=== PATIENT | male | born 1940 | race Caucasian/White ===

== ENCOUNTER 2019-02-03 00:18 | Observation (INO) | payer MEDICARE, BC ==
[~2019-02-03] VITALS: Ht 172.7 cm; Wt 93.0 kg
[2019-02-03] VITALS (8 sets, daily range): BP systolic 132–160; BP diastolic 54–76; PULSE 57–64; TEMP 97.6–99.4
[~2019-02-03 00:18] MED LIST: ACETAMINOPHEN W1 TA6 PO; ALTACE 10MG TAB10 MG PO; ALTACE10 MG PO; ASPIRIN 32325 MG/TA1 PO; ASPIRIN 32325 MG/TAB PO; CARDI-OMEGA1000 MG PO; CIPRO 500MG TA500 MG PO; COREG 25MG25 MG/TAB PO; COREG12.5 MG PO; DUO-KAPS1 CAP PO; FISH OIL CONCEN1 SG2 PO; FLOMAX0.4 MG PO; GLUCOPHAGE500 MG/TAB PO; LIPITOR 40MG TA40 MG PO; LIPITOR80 MG PO; LOPURIN300 MG PO; METFORMIN HCL500 MG PO; NITROGLYCERIN PO; NITROSTAT0.4 MG SL; NITROSTAT0.4 MG/TAB SL; PERCOCET 325 MG1 TA2 PO; VICODIN 5/5001 UDTAB PO; VITAMINS; XALATAN 2.5 ML2.5 ML OP; XALATAN EYE DROPS OU; ZYLOPRIM 300MG300 MG PO; [UNRECOGNIZED DRUG - OTHER] PO
[2019-02-03 00:55] LABS: BASO # 0.1 (0.0-0.2); EOS # 0.3 (0.0-0.7); GRAN # 3.5 (1.4-6.5); GRAN % 54.8 % (42.2-75.2); HEMOGLOBIN 14.3 g/dl (13.5-18.0); LYMPH # 1.9 (1.2-3.4); LYMPH % 29.7 % (20.0-51.0); MEAN CELL VOLUME 94 fl (80.0-100.0); MEAN CORPUSCULAR HEMOGLOBIN 32 pg (27.0-31.0); MEAN CORPUSCULAR HGB CONC 34 g/dl (33.0-37.0); MEAN PLATELET VOLUME 9.8 fl (7.4-10.4); MONO # 0.6 (0.1-0.6); MONO % 10.2 % (1.7-9.3); PLATELET COUNT 194 K/mm3 (130-400); RED BLOOD COUNT 4.49 M/mm3 (4.20-5.60); REDCELL DISTRIBUTION WIDTH-CV 13.2 % (11.5-14.5)
[2019-02-03 01:07] LABS: INR 0.9 (0.8-3.0)
[2019-02-03 01:09] LABS: PARTIAL THROMBOPLASTIN TIME 28.5 SECONDS (26.0-37.0)
[2019-02-03 01:14] LABS: ALANINE AMINOTRANSFERASE 32 U/L (21-72); ALBUMIN 4.2 gm/dL (3.5-5.0); ALKALINE PHOSPHATASE 61 U/L (50-136); ANION GAP 9 mmol/L (7-16); AST,SGOT 33 U/L (15-37); BILIRUBIN,TOTAL 0.8 mg/dL (0.0-1.0); BLOOD UREA NITROGEN 27 mg/dL (9-20); CALCIUM 10.1 mg/dL (8.4-10.2); CARBON DIOXIDE 30 mmol/L (22-30); CHLORIDE 104 mmol/L (98-107); GLUCOSE 110 mg/dL (74-106); LIPASE 173 U/L (23-300); POTASSIUM 4.9 mmol/L (3.4-5.0); SODIUM 143 mmol/L (137-145); TOTAL PROTEIN 7.3 gm/dL (6.4-8.2)
[2019-02-03 01:24] LABS: TROPONIN-I < 0.012 ng/mL (0.000-0.035)
[2019-02-03] MEDS ORDERED: XALATAN EYE DROPS OD (03:25)
--- NOTE | 2019-02-03 08:00 | NUR ---
Patient in bed resting. Alert and oriented x 3. Shift assessment complete. Spouse at bedside. Patient NPO. Tele in place. Denies pain or further needs at this time. Patient is to have stress test this AM.
--- NOTE | 2019-02-03 11:48 | NUR ---
First visit from the dryer and washer mechanic. No needs right now.
--- NOTE | 2019-02-03 12:00 | NUR ---
Patient down for stress test.
[2019-02-03 15:46] LABS: CALCIUM 9.7 mg/dL (8.4-10.2); CREATININE, serum 1.11 (0.66-1.25); POTASSIUM 4.3 mmol/L (3.4-5.0)
--- NOTE | 2019-02-03 16:01 | NUR ---
CLINT met with the patient to discuss a discharge plan. The pt lives in [place] with his . The pt does not use DME and reports independence with ADLs. The pt's PCP is Dr. Diez and pt receives medications from [facility] with no difficulties. The pt does not have advanced directives in the EMR but reports he does have them completed and designate his . The pt plans to return home and pt's will provide transportation. There are no additional needs at this time.
--- NOTE | 2019-02-03 18:27 | NUR ---
Patient has done well throughout the day. Independent in room. Spouse at bedside. Dr. Licea in to see patient. Denies pain or further needs at this time. Will report off to police shift commander.
--- NOTE | 2019-02-04 00:12 | NUR ---
CALL FROM TELEMETRY MONITORING REPORTING THAT PATIENT HAD 1 MINUETE RUN OF AFIB RATE CONTROLLED AT 120. CURRENTLY IN NSR. BP 120/66 HR 57. DENIES CHEST PAIN OR SHORTNESS OF BREATHE. CALL TO DR. GARCIA. NO NEWORDERS RECEIVED. WILL CONTINUE TO MONITOR, OBTAINED EKG IF IN AFIB AGAIN.
[2019-02-04 04:35] VITALS: BP 134/74; PULSE 57; TEMP 97.6
[2019-02-04 06:40] LABS: CALCIUM 9.1 mg/dL (8.4-10.2); CREATININE, serum 1.06 (0.66-1.25); POTASSIUM 4.3 mmol/L (3.4-5.0)
[2019-02-04 07:33] VITALS: BP 146/72; PULSE 89; TEMP 98.1
--- NOTE | 2019-02-04 10:40 | NUR ---
Pt assessment complete and charted. Morning medications administered per AUG. Pt denies chest pain, SOB, dizziness, N/V. Per pyrometer temperature regulator nurse pt had a short moment of afib while pt was sleeping, VSS, hospitalist notified, pt was slightly diaphoretic. Per pt he "sleeps hot". Otherwise pt asymptomatic. No other concerns or other episodes of afib. LFA patent. No other concerns at this time.
--- NOTE | 2019-02-04 11:29 | NUR ---
This nurse contacted LORY Gamez with cardio to discuss patients EKG strip, brief moment of afib overnight prior to signing off for discharge. Vera stated they would take a look.
[2019-02-04 11:36] VITALS: BP 144/71; PULSE 64; TEMP 97.8
[2019-02-04] MEDS ORDERED: ELIQUIS 5MG PO (13:36)
[2019-02-04] MEDS ORDERED: ASPIRIN E.C. 8181 MG PO (13:38)
--- NOTE | 2019-02-04 14:35 | NUR ---
Pt discharge instructions discussed and reviewed at bedside with patient . All questions answered. RWR INT IV discontinued with catheter tip intact and no complications. Tele removed. Pt escorted out via wheelchair by Anna Marie. No other needs.
== END 2019-02-04 14:41 | disposition home or self-care (01) ==
LOC: COL.ER 00:18 → SURG 01:59
PROVIDERS: Emergency Medicine; Nurse Practitioner Family; ADMIT Family Medicine
DX: R07.89 Other chest pain (principal); I48.0 Paroxysmal atrial fibrillation; I12.9 Hypertensive chronic kidney disease with stage 1 through stage 4 chronic kidney disease, or unspecified chronic kidney disease; E11.22 Type 2 diabetes mellitus with diabetic chronic kidney disease; E78.5 Hyperlipidemia, unspecified; M10.9 Gout, unspecified; E11.39 Type 2 diabetes mellitus with other diabetic ophthalmic complication; H42 Glaucoma in diseases classified elsewhere; I25.10 Atherosclerotic heart disease of native coronary artery without angina pectoris; I25.2 Old myocardial infarction; I07.1 Rheumatic tricuspid insufficiency; Z86.73 Personal history of transient ischemic attack (TIA), and cerebral infarction without residual deficits; Z79.84 Long term (current) use of oral hypoglycemic drugs; Z79.82 Long term (current) use of aspirin; Z87.891 Personal history of nicotine dependence; Z82.49 Family history of ischemic heart disease and other diseases of the circulatory system; Z83.3 Family history of diabetes mellitus
CPT/HCPCS: A9500; G0378; J7030

== ENCOUNTER 2020-12-04 00:04 | Inpatient (IN) | payer MEDICARE, BC ==
[2020-12-04] VITALS (722 sets, daily range): BP systolic 118–160; BP diastolic 59–96; PULSE 33–150; TEMP 97.1–98.6; O2SAT 60–100
[~2020-12-04] VITALS: Ht 172.7 cm; Wt 90.9 kg
[~2020-12-04 00:04] MED LIST changes: +ASPIRIN E.C. 8181 MG PO; +ELIQUIS 5MG PO; +XALATAN EYE DROPS OD
[2020-12-04 00:44] LABS: HEMATOCRIT 44.3 % (42.0-52.0); HEMOGLOBIN 14.9 g/dl (13.5-18.0); MEAN CELL VOLUME 95 fl (80.0-100.0); MEAN CORPUSCULAR HEMOGLOBIN 32 pg (27.0-31.0); MEAN CORPUSCULAR HGB CONC 34 g/dl (33.0-37.0); MEAN PLATELET VOLUME 10.2 fl (7.4-10.4); PLATELET COUNT 292 K/mm3 (130-400); RED BLOOD COUNT 4.68 M/mm3 (4.20-5.60); REDCELL DISTRIBUTION WIDTH-CV 13.5 % (11.5-14.5)
[2020-12-04 00:51] LABS: ALBUMIN 4.5 gm/dL (3.5-5.0); BILIRUBIN,TOTAL 0.7 mg/dL (0.0-1.0); CALCIUM 10.4 mg/dL (8.4-10.2); CREATININE, serum 2.04 (0.66-1.25)
[2020-12-04 01:06] LABS: LYMPHOCYTE 19 % (20.0-51.0); NEUTROPHILS 71 % (42.0-75.2); NUCLEATED RED BLOOD CELL 1 (0-6); PLATELET ESTIMATE NORMAL (NORMAL)
[2020-12-04 01:14] LABS: TROPONIN-I 0.215 ng/mL (0.000-0.035)
[2020-12-04 02:10] LABS: MAGNESIUM 1.8 mg/dL (1.6-2.3)
[2020-12-04] MEDS ORDERED: CORDARONE200 MG/TAB PO (03:57)
[2020-12-04] MEDS ORDERED: NITROSTAT0.4 MG/TAB SL (03:57)
[2020-12-04] MEDS ORDERED: EPA FISH OIL1 SGL PO (03:57)
[2020-12-04] MEDS ORDERED: ALDACTONE 25MG25 M1 PO (03:58)
[2020-12-04] MEDS ORDERED: VITAMIN D31000 I1 PO (03:58)
--- NOTE | 2020-12-04 07:23 | NUR ---
RECEIVED REPORT FROM MAC VELASQUEZ. PATIENT IS COMPLAINING OF CHEST PAIN. GETTING PAIN MEDS ORDERED. BREATHING IS DIFFICULT WITH THE PAIN. HR IS STILL HIGH AND WILL BE SEEING WHAT DOCTORS WANT TO DO. THE REST OF PATIENT'S VITALS ARE STABLE AND PATIENT IS IN BED. AMIODARONE GTT IS RUNNING. [address] AND PATENT. REMAINS A FEBRILE, BUT DIAPHORETIC AND COOL.
--- NOTE | 2020-12-04 09:05 | NUR ---
DR. GARCIA AT BEDSIDE. AGREEABLE TO CARDIOVERSION WITH DR. WOODARD. DR. WOODARD AWARE AND ON HIS WAY IN.
--- NOTE | 2020-12-04 09:38 | NUR ---
DR. WOODARD AND ANESTHESIA AT BEDSIDE. GETTING READY FOR CARDIOVERSION.
--- NOTE | 2020-12-04 09:53 | NUR ---
CARDIOVERSION COMPLETED AND SUCCESSFUL. PATIENT VERBALLY AGREED TO PROCEDURE. EQUIPMENT WAS GATHERED, ANESTHESIA AND CARDIOLOGY WAS CALLED. PATIENT PLACED ON MONITOR WITH SHOCK PADS. MONITOR TURNED ON. ATTEMPTED TO GIVE ADENOSINE 18MG AT 0940, UNSUCCESSFUL. CARRIED ON TO CARDIOVERSION. FLUIDS WERE HUNG, SEDATION 70MCG PUSHED VIA ANESTHESIA AT 0946. MONITOR WAS PLACE ON DEFIB MODE, CHARGED TO 200 AND SHOCKED ONCE AT 0949. HR WAS STILL LOW FOR 2 MINUTES. PUSHED ATROPINE 0.5MG AT 0951. PATIENT'S HR SUSTAINED IN 50s POST. NORMAL SINUS RHYTHM ON THE MONITOR.
--- NOTE | 2020-12-04 13:29 | NUR ---
SW met with patient to complete intake. Patient was resting and was okay with assisting with intake. Patient's spouse Kera [phone] states patient lives with her in [facility]. Spouse states that patient does not utilize DME, is independent with ADLs, and does not utilize HH services. Spouse states that patient's PCP is Dr. Diez, pharmacy is [facility] and that patient is able to afford his medications. Spouse provides that she is patient's DPOA-HC. Spouse also states that she is unsure of what the plan is for DC due to patient's needed extensive care at this time. SW informed spouse that the case management team will assist in resources needed up on DC. Spouse had no further questions or concerns at this time. Plan: Home if able to up on recommendation
[2020-12-04 13:52] LABS: ARTERIAL BLD GAS TCO2 CT 17.6; ARTERIAL BLOOD GAS BASE EXCESS -6.2 (-2-2); ARTERIAL BLOOD GAS HCO3 16.7 meq/L (22-26); ARTERIAL BLOOD GAS PO2 88.7 mmHg (80-100); ARTERIAL BLOOD GAS pH 7.41 (7.35-7.45)
[2020-12-04 14:52] LABS: BASO % 0.2 % (0.0-2.0); GRAN # 19.4 (1.4-6.5); GRAN % 88.8 % (42.2-75.2); HEMATOCRIT 42.1 % (42.0-52.0); HEMOGLOBIN 14.2 g/dl (13.5-18.0); LYMPH % 4.4 % (20.0-51.0); MEAN CELL VOLUME 96 fl (80.0-100.0); MEAN CORPUSCULAR HEMOGLOBIN 33 pg (27.0-31.0); MEAN CORPUSCULAR HGB CONC 34 g/dl (33.0-37.0); MEAN PLATELET VOLUME 10.8 fl (7.4-10.4); MONO # 1.3 (0.1-0.6); MONO % 6.1 % (1.7-9.3); PLATELET COUNT 261 K/mm3 (130-400); RED BLOOD COUNT 4.37 M/mm3 (4.20-5.60); REDCELL DISTRIBUTION WIDTH-CV 13.8 % (11.5-14.5)
[2020-12-04 16:27] LABS: BILIRUBIN,TOTAL 0.9 mg/dL (0.0-1.0); CREATININE, serum 2.03 (0.66-1.25); TOTAL PROTEIN 7.3 gm/dL (6.4-8.2)
[2020-12-04 16:45] LABS: POTASSIUM 6.1 mmol/L (3.4-5.0)
--- NOTE | 2020-12-04 20:00 | NUR ---
Assessment complete. Pt able to answer most questions correctly but has some intermittent confusion stating he's in [place] and that his is in the room next door. Denies having any pain at this time. Pt is resting quietly in the bed at this time and he denies further needs. Call light within reach.
[2020-12-05] VITALS (831 sets, daily range): BP systolic 133–175; BP diastolic 64–115; PULSE 54–71; TEMP 97.8–98.7; O2SAT 76–100
[2020-12-05 05:30] LABS: BASO % 0.1 % (0.0-2.0); EOS % 0.1 % (0-4.0); GRAN # 11.4 (1.4-6.5); HEMATOCRIT 39.5 % (42.0-52.0); HEMOGLOBIN 13.4 g/dl (13.5-18.0); LYMPH % 7.3 % (20.0-51.0); MEAN CELL VOLUME 95 fl (80.0-100.0); MEAN CORPUSCULAR HEMOGLOBIN 32 pg (27.0-31.0); MEAN CORPUSCULAR HGB CONC 34 g/dl (33.0-37.0); MEAN PLATELET VOLUME 10.4 fl (7.4-10.4); MONO # 0.9 (0.1-0.6); MONO % 6.9 % (1.7-9.3); PLATELET COUNT 204 K/mm3 (130-400); RED BLOOD COUNT 4.17 M/mm3 (4.20-5.60); REDCELL DISTRIBUTION WIDTH-CV 13.8 % (11.5-14.5)
[2020-12-05 05:44] LABS: ALBUMIN 3.7 gm/dL (3.5-5.0); CALCIUM 9.6 mg/dL (8.4-10.2); CREATININE, serum 1.78 (0.66-1.25); POTASSIUM 4.9 mmol/L (3.4-5.0)
--- NOTE | 2020-12-05 07:30 | NUR ---
Bedside shift report given to MAC Abraham.
--- NOTE | 2020-12-05 09:50 | NUR ---
SW attended clinical rounds. The patient's and another family member were at bedside. Awaiting cardiology's recs. The patient may have a heart cath in the next few days. PT/OT have been ordered. SW to continue to follow. *Discharge plan: home with , awaiting therapy's recs*
--- NOTE | 2020-12-05 09:56 | NUR ---
Initial visit attempt; Patient talking with nurse, Wheat Washer spoke with patient's and left her card so they will be aware of the availability of spiritual care.
--- NOTE | 2020-12-05 10:12 | NUR ---
0730: Pt tolerated turn from prone to supine without difficulty or complications 0751: Propofol and Fentanyl stopped per MD Devon who is on unit 0830: Precedex initiated at 0.5mcg/kg/hr d/t RASS: +3 and tachycardia HR: [id number] 9213: Pt maintains RASS: +3, pt moving all extremities, attempting to reach head down towards hands making attempts to grasp ETT, however pt unable to follow commands or maintain eye contact or track with eyes. BP: 192/62, HR:157, pt coughing and interrupting ventilations causing constant high priority alarms with desaturation of SpO2 d/t constant coughing 0940: per MD Devon pt to be resedated for pt safety
--- NOTE | 2020-12-05 20:00 | NUR ---
PATIENT IS ALERT AND ORIENTED AT THIS TIME, ADMITS TO UP COMING EVENTS (HEART CATH, ICD PLACEMENT), DENIES PAIN OR DISCOMFORT/ FEELS GOOD ABOUT WALKS WITH PT.
[2020-12-06] VITALS (1032 sets, daily range): BP systolic 109–167; BP diastolic 59–94; PULSE 58–153; TEMP 97.8–99; O2SAT 85–100
[2020-12-06 05:20] LABS: BASO % 0.3 % (0.0-2.0); EOS % 0.4 % (0-4.0); GRAN # 7.4 (1.4-6.5); GRAN % 79.4 % (42.2-75.2); HEMATOCRIT 40.7 % (42.0-52.0); HEMOGLOBIN 13.5 g/dl (13.5-18.0); LYMPH % 11.2 % (20.0-51.0); MEAN CELL VOLUME 95 fl (80.0-100.0); MEAN CORPUSCULAR HEMOGLOBIN 32 pg (27.0-31.0); MEAN CORPUSCULAR HGB CONC 33 g/dl (33.0-37.0); MEAN PLATELET VOLUME 10.2 fl (7.4-10.4); MONO # 0.8 (0.1-0.6); MONO % 8.3 % (1.7-9.3); PLATELET COUNT 205 K/mm3 (130-400); RED BLOOD COUNT 4.27 M/mm3 (4.20-5.60); REDCELL DISTRIBUTION WIDTH-CV 13.7 % (11.5-14.5)
[2020-12-06 05:30] LABS: CALCIUM 9.6 mg/dL (8.4-10.2); CREATININE, serum 1.69 (0.66-1.25); INR 1.3 (0.8-3.0); MAGNESIUM 1.8 mg/dL (1.6-2.3); POTASSIUM 4.7 mmol/L (3.4-5.0); PROTHROMBIN TIME 13.9 SECONDS (9.7-12.8)
[2020-12-06 05:33] LABS: PARTIAL THROMBOPLASTIN TIME 28.2 SECONDS (26.0-37.0)
--- NOTE | 2020-12-06 06:40 | NUR ---
this am vacation sedation,went ok, patient does not understand directions, cannot follow simple commands, wrestles with restraints, unable to relax, pulses elevated to 130, sedation/pain/anesthia meds renewed...
--- NOTE | 2020-12-06 07:10 | NUR ---
RECEIVED REPORT FROM MAC VELASQUEZ. PT RESTING IN BED ON RA. VSS. CALL LIGHT WITHIN REACH.
--- NOTE | 2020-12-06 07:46 | NUR ---
PER MT, PT IN VTACH 150s. DR MORTON NOTIFIED AND STATES TO GIVE VERSED AND SHOCK THE PT WITH MAX JOULES ON SYNCH. PT SHOCKED X1 WITH 200J AT 0758. SR 87 POST SHOCK. VSS.
--- NOTE | 2020-12-06 08:03 | NUR ---
JONAH RN NOTED PT BACK INTO VTACH. 200J X1 SHOCK GIVEN. BACK IN SR 80s. DR DE LEON CALLS AND STATES TO GIVE AMIO BOLUS THEN START GTT, SEE MAR.
--- NOTE | 2020-12-06 08:23 | NUR ---
DR DE LEON NOTIFED PT BACK INTO VTACH 140s AFTER AMIO BOLUS GIVEN. PHYSICIAN STATES WILL BE AT BEDSIDE SOON. DR DE LEON AT BEDSIDE AT 0829, PROPOFOL GIVEN BY PROVIDER AND ANOTHER 200J SHOCK PROVIDED, SR 70s. AEROBICS TEACHER TEAM AT BEDSIDE TO PREPARE PT FOR PROCEDURE. AND DAUGHTER AT BEDSIDE AWARE OF WHAT IS GOING ON. VSS. PT TO AEROBICS TEACHER AT 0848.
--- NOTE | 2020-12-06 12:30 | NUR ---
RECEIVED REPORT FROM MAC JOHNSON FROM RECORDER HELPER GRAVITY PROSPECTING. PT ARRIVES BACK TO ICI 6 WITH LEFT ARM IN SLING. DRESSING C/D/I TO LEFT SUBCLAVIAN. RT RADIAL TR BAND NOTED, NOT DRAINAGE NOTED. VSS. CALL LIGHT WITHIN REACH. DAUGHTER AND TO BEDSIDE.
--- NOTE | 2020-12-06 12:56 | NUR ---
DR ALDRICH AT BEDSIDE FOR ASSESSMENT. UPDATED PROVIDER ON INCIDENT THIS AM AND NEW PACEMAKER/DEFIB PLACED TODAY.
[2020-12-07] VITALS (822 sets, daily range): BP systolic 123–167; BP diastolic 71–104; PULSE 64–96; TEMP 97.8–98.7; O2SAT 89–100
--- NOTE | 2020-12-07 02:24 | NUR ---
0051, PATIENT NOTED TO BE IN V TACH PER MONITOR, PATIENT WITH NO COMPLAINTS OF SOB OR CP. LOUISE JOHNSON NOTIFIED AND THEN PRESENT AT BEDSIDE, ICD PACEMAKER NOTED TO CONVERT PATIENT BACK INTO PACED RHYTHM 0130 PATIENT ENDORSED PAIN TO LEFT SHOULDER ADMINISTERED PRN MORPHINE PER ORDERS 0215 PATIENT HAS BEEN IN AND OUT OF V TACH AN ADDITIONAL 5 TIMES, PACER ADJUSTMENTS MADE PER DR. MORTON WITH FINAL PARAMETERS OF 85-120 PACED AND ICD AT 130 0230 PATIENT CURRENTLY IN PACED RHYTHM AT 84, RESTING QUIETLY IN BED WILL CONTINUE TO MONITOR
[2020-12-07 05:04] LABS: HEMATOCRIT 43.5 % (42.0-52.0); HEMOGLOBIN 14.5 g/dl (13.5-18.0); MEAN CELL VOLUME 95 fl (80.0-100.0); MEAN CORPUSCULAR HEMOGLOBIN 32 pg (27.0-31.0); MEAN CORPUSCULAR HGB CONC 33 g/dl (33.0-37.0); MEAN PLATELET VOLUME 10.9 fl (7.4-10.4); PLATELET COUNT 223 K/mm3 (130-400); RED BLOOD COUNT 4.56 M/mm3 (4.20-5.60); REDCELL DISTRIBUTION WIDTH-CV 13.5 % (11.5-14.5)
[2020-12-07 05:17] LABS: CALCIUM 9.8 mg/dL (8.4-10.2); CREATININE, serum 1.5 (0.66-1.25); POTASSIUM 4.4 mmol/L (3.4-5.0)
[2020-12-07 05:23] LABS: INR 1.1 (0.8-3.0); PROTHROMBIN TIME 12.4 SECONDS (9.7-12.8)
[2020-12-07 05:25] LABS: PARTIAL THROMBOPLASTIN TIME 25.8 SECONDS (26.0-37.0)
--- NOTE | 2020-12-07 08:21 | NUR ---
Pt to CathLab, accompanied by spouse and daughter
--- NOTE | 2020-12-07 11:00 | NUR ---
CLINT met with the patient, his (Kera), and daughter to review d/c plan and to discuss therapy's recommendation of outpatient PT vs home health. The patient plans to return home with his upon discharge. Him and his report that they would prefer outpatient PT. CLINT informed them of the different therapy centers. The patient states that he would like to try outpatient PT at the new [facility] in [facility]. CLINT contacted Viri at [facility] and obtained their phone number. Viri reports that the new [facility] is up and running. CLINT attempted to contact [facility] at [facility]. CLINT left them a voicemail. The patient reports an appointment on Saturday/Sat at 1000 or /Sat at 0800 would work. [facility] in [facility], ph#[phone] fax#[phone] *Discharge plan: home with and outpatient PT*
--- NOTE | 2020-12-07 11:22 | NUR ---
Kevin, at [facility] in [facility], returned CLINT's phone call. CLINT scheduled the patient an outpatient PT appointment on Saturday, 12/12, at 1000. CLINT notified the patient's RN of the appointment. CLINT will need to fax the patient's d/c orders to [facility], fax#[phone].
[2020-12-08] VITALS (783 sets, daily range): BP systolic 115–144; BP diastolic 76–84; PULSE 69–70; TEMP 97–99; O2SAT 80–100
--- NOTE | 2020-12-08 06:11 | NUR ---
PATIENT WAS PLESANT AND ORIENTED THROUGHOUT NIGHT. CATH AND PACER SITE REMAINED FREE OF COMPLICATIONS, DRY AND INTACT. PT COMPLAINED OF MINIMAL DISCOMFORT FROM LAYING AROUND THIS MORNING BUT OTHER THAN THAT, PT HAS BEEN COMFORTABLE AND SLEPT MOST OF NIGHT. STARTED PLAVIX AND ELIQUIS. CALLED [facility] AND CARDIOLOGY DUE TO 5 BEATS OF VTACH AT 0200 AND 3 RUNS OF ABOUT 13 SECONDS AFTER 0000. CARDIOLOGY RECOMENDS GIVING AMIO BOLUS IF 2 MORE RUNS OCCUR THIS MORNIGN OR IF A RUN LASTS LONGER THAN 30 SECONDS.
[2020-12-08 07:00] LABS: BASO % 0.3 % (0.0-2.0); EOS # 0.2 (0.0-0.7); EOS % 1.6 % (0-4.0); GRAN # 9.3 (1.4-6.5); GRAN % 81.3 % (42.2-75.2); HEMATOCRIT 37.1 % (42.0-52.0); LYMPH # 0.8 (1.2-3.4); LYMPH % 7.1 % (20.0-51.0); MEAN CELL VOLUME 92 fl (80.0-100.0); MEAN CORPUSCULAR HEMOGLOBIN 32 pg (27.0-31.0); MEAN CORPUSCULAR HGB CONC 35 g/dl (33.0-37.0); MEAN PLATELET VOLUME 10.8 fl (7.4-10.4); MONO % 9.1 % (1.7-9.3); PLATELET COUNT 193 K/mm3 (130-400); RED BLOOD COUNT 4.02 M/mm3 (4.20-5.60); REDCELL DISTRIBUTION WIDTH-CV 13.4 % (11.5-14.5)
[2020-12-08 07:09] LABS: CALCIUM 8.9 mg/dL (8.4-10.2); CREATININE, serum 2.14 (0.66-1.25); POTASSIUM 4.2 mmol/L (3.4-5.0)
--- NOTE | 2020-12-08 07:39 | NUR ---
PT HAD 3 MORE RUNS OF VTACH AFTER CALL WITH DR BOLAND. AMIO BOLUS ORDERED AND GIVEN. PT REMAINS ASYMPTOMATIC WITH VTACH RUNS.
--- NOTE | 2020-12-08 10:00 | NUR ---
Since 0700 pt has had 4 episodes of VTach where ICD/PPM was able to pace him out of the arrhythmia to an AV Paced rhythm. MD Cici notified - will contact EP Mosaic Tiler at [facility] for possible transfer - pt and family in agreement with transfer plan
--- NOTE | 2020-12-08 11:48 | NUR ---
[facility] No additional needs at this time.
--- NOTE | 2020-12-08 13:28 | NUR ---
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 Patient was amused and very gracious. offered God's blessings to Dr. Jonhson.
--- NOTE | 2020-12-08 21:00 | NUR ---
Assessment complete and charted. Patient IIV site in right AC swollen, painful to touch, with redness and warmth. Amio infusion stopped and moved to another IV site. IV right AC removed and wrapped with warm blanket at this time. Will closely monitor site.
[2020-12-09] VITALS (68 sets, daily range): BP systolic 134; BP diastolic 73; PULSE 69; TEMP 97.7; O2SAT 94–98
--- NOTE | 2020-12-09 01:19 | NUR ---
Patient transferred to [facility] via [facility]. Report called to MAC Porter
[2021-05-22] VITALS (8 sets, daily range): O2SAT 86–100
== END 2020-12-09 01:25 | disposition short-term general hospital (02) | DRG 222 ==
LOC: COL.ER 00:04 → ICU 01:47
PROVIDERS: Emergency Medicine; Internal Medicine; Internal Medicine Cardiovascular Disease; Internal Medicine Pulmonary Disease; Physician Assistant; Student in an Organized Health Care Education/Training Program; ADMIT Hospitalist
PROC: 0JH609Z Insertion of Cardiac Resynchronization Defibrillator Pulse Generator into Chest Subcutaneous Tissue and Fascia, Open Approach (ICD-10-PCS; principal; 2020-12-04)
PROC: 02HK3KZ Insertion of Defibrillator Lead into Right Ventricle, Percutaneous Approach (ICD-10-PCS; 2020-12-04)
PROC: 4A023N7 Measurement of Cardiac Sampling and Pressure, Left Heart, Percutaneous Approach (ICD-10-PCS; 2020-12-04)
PROC: 02H63KZ Insertion of Defibrillator Lead into Right Atrium, Percutaneous Approach (ICD-10-PCS; 2020-12-04)
PROC: 027135Z Dilation of Coronary Artery, Two Arteries with Two Drug-eluting Intraluminal Devices, Percutaneous Approach (ICD-10-PCS; 2020-12-04)
PROC: 5A2204Z Restoration of Cardiac Rhythm, Single (ICD-10-PCS; 2020-12-04)
PROC: B2111ZZ Fluoroscopy of Multiple Coronary Arteries using Low Osmolar Contrast (ICD-10-PCS; 2020-12-04)
PROC: 02HL3KZ Insertion of Defibrillator Lead into Left Ventricle, Percutaneous Approach (ICD-10-PCS; 2020-12-04)
DX: I13.0 Hypertensive heart and chronic kidney disease with heart failure and stage 1 through stage 4 chronic kidney disease, or unspecified chronic kidney disease (principal); I50.23 Acute on chronic systolic (congestive) heart failure; H40.9 Unspecified glaucoma; E87.5 Hyperkalemia; M10.9 Gout, unspecified; E78.5 Hyperlipidemia, unspecified; I25.10 Atherosclerotic heart disease of native coronary artery without angina pectoris; I95.9 Hypotension, unspecified; I48.0 Paroxysmal atrial fibrillation; I25.5 Ischemic cardiomyopathy; E11.22 Type 2 diabetes mellitus with diabetic chronic kidney disease; N18.9 Chronic kidney disease, unspecified; Z86.73 Personal history of transient ischemic attack (TIA), and cerebral infarction without residual deficits; Z79.84 Long term (current) use of oral hypoglycemic drugs; Z79.82 Long term (current) use of aspirin
CPT/HCPCS: 99231-AI; 99233-AI; 99239; C1725; C1769; C1777; C1874; C1882; C1887; C1894; C1898; C1900; C9600; C9601; J0153; J0282; J0360; J0461; J0583; J0610; J0690; J1644; J1650; J1815; J1940; J2250; J2270; J2704; J3010; J3475; J7030; J7060; Q9967

== ENCOUNTER 2020-12-17 11:14 | Emergency (ER) | payer MEDICARE, BC ==
[~2020-12-17] VITALS: Ht 172.7 cm; Wt 87.7 kg
[~2020-12-17 11:14] MED LIST changes: +ALDACTONE 25MG25 M1 PO; +CORDARONE200 MG/TAB PO; +EPA FISH OIL1 SGL PO; +VITAMIN D31000 I1 PO
[2020-12-17 11:20] VITALS: TEMP 97.8
[2020-12-17 11:53] LABS: HEMOGLOBIN 10.9 g/dl (13.5-18.0); MEAN CELL VOLUME 96 fl (80.0-100.0); MEAN CORPUSCULAR HEMOGLOBIN 32 pg (27.0-31.0); MEAN CORPUSCULAR HGB CONC 33 g/dl (33.0-37.0); MEAN PLATELET VOLUME 9.6 fl (7.4-10.4); PLATELET COUNT 357 K/mm3 (130-400); RED BLOOD COUNT 3.43 M/mm3 (4.20-5.60); REDCELL DISTRIBUTION WIDTH-CV 13.2 % (11.5-14.5)
[2020-12-17 12:02] LABS: ALBUMIN 3.8 gm/dL (3.5-5.0); BILIRUBIN,TOTAL 0.7 mg/dL (0.0-1.0); CREATININE, serum 3.53 (0.66-1.25); MAGNESIUM 2.2 mg/dL (1.6-2.3); POTASSIUM 4.7 mmol/L (3.4-5.0); TOTAL PROTEIN 7.4 gm/dL (6.4-8.2)
[2020-12-17 12:27] LABS: BAND 1 % (0-10); EOSINOPHIL 1 % (0-4); LYMPHOCYTE 8 % (20.0-51.0); METAMYELOCYTE 1 % (0-0); NEUTROPHILS 88 % (42.0-75.2); PLATELET ESTIMATE NORMAL (NORMAL)
[2020-12-17 12:30] LABS: MICROCYTOSIS 1+
[2020-12-17 12:33] VITALS: BP 138/81; PULSE 80
[2020-12-17 12:57] LABS: TROPONIN-I 0.033 ng/mL (0.000-0.035)
== END 2020-12-17 12:33 | disposition short-term general hospital (02) ==
LOC: COL.ER 11:14
PROVIDERS: Emergency Medicine
DX: Z45.02 Encounter for adjustment and management of automatic implantable cardiac defibrillator (principal); I25.10 Atherosclerotic heart disease of native coronary artery without angina pectoris; I48.0 Paroxysmal atrial fibrillation; I10 Essential (primary) hypertension; E11.9 Type 2 diabetes mellitus without complications; E78.5 Hyperlipidemia, unspecified; M10.9 Gout, unspecified; I25.2 Old myocardial infarction; Z86.73 Personal history of transient ischemic attack (TIA), and cerebral infarction without residual deficits; Z87.891 Personal history of nicotine dependence; Z79.01 Long term (current) use of anticoagulants; Z79.82 Long term (current) use of aspirin; Z79.899 Other long term (current) drug therapy; Z79.84 Long term (current) use of oral hypoglycemic drugs
CPT/HCPCS: J0282; J7060

== ENCOUNTER 2021-04-13 11:00 | Outpatient (RCR) | payer MEDICARE, BC | END 2021-05-17 | disposition home or self-care (01) | LOC: PT.GENESIS | DX: M70.62 Trochanteric bursitis, left hip (principal); M70.61 Trochanteric bursitis, right hip ==

== ENCOUNTER 2021-04-26 13:35 | Outpatient (RCR) | payer MEDICARE, BC | END 2021-04-26 15:00 | disposition home or self-care (01) | LOC: COL.CR 13:35 | DX: Z48.812 Encounter for surgical aftercare following surgery on the circulatory system (principal); Z95.5 Presence of coronary angioplasty implant and graft; I20.9 Angina pectoris, unspecified ==

== ENCOUNTER 2021-05-22 16:47 | Inpatient (IN) | payer MEDICARE, BC ==
[~2021-05-22] VITALS: Ht 170.2 cm; Wt 77.2 kg
[2021-05-22] VITALS (88 sets, daily range): BP systolic 97–148; BP diastolic 64–84; PULSE 79; O2SAT 98–100
[2021-05-22 17:14] LABS: HEMOGLOBIN 11.7 g/dl (13.5-18.0); MEAN CELL VOLUME 94 fl (80.0-100.0); MEAN CORPUSCULAR HEMOGLOBIN 31 pg (27.0-31.0); MEAN CORPUSCULAR HGB CONC 33 g/dl (33.0-37.0); MEAN PLATELET VOLUME 9.7 fl (7.4-10.4); PLATELET COUNT 335 K/mm3 (130-400); RED BLOOD COUNT 3.77 M/mm3 (4.20-5.60); REDCELL DISTRIBUTION WIDTH-CV 14.1 % (11.5-14.5)
[2021-05-22 17:17] LABS: HEMATOCRIT 35.6 % (42.0-52.0)
[2021-05-22 17:21] LABS: INR 1.6 (0.8-3.0); PROTHROMBIN TIME 17.6 SECONDS (9.7-12.8)
[2021-05-22 17:31] LABS: ALANINE AMINOTRANSFERASE 32 U/L (0-55); ALBUMIN 3.2 gm/dL (3.4-4.8); ALKALINE PHOSPHATASE 72 U/L (40-150); ANION GAP 13 mmol/L (7-16); AST,SGOT 23 U/L (5-34); BILIRUBIN,TOTAL 0.8 mg/dL (0.2-1.2); BLOOD UREA NITROGEN 37 mg/dL (8-26); CALCIUM 8.9 mg/dL (8.4-10.2); CARBON DIOXIDE 18 mmol/L (23-31); CHLORIDE 106 mmol/L (98-107); CREATININE, serum 2.93 mg/dL (0.72-1.25); GLUCOSE 212 mg/dL (70-99); MAGNESIUM 1.6 mg/dL (1.6-2.6); POTASSIUM 4.7 mmol/L (3.5-4.5); SODIUM 137 mmol/L (136-145); TOTAL PROTEIN 7.3 gm/dL (6.2-8.1)
[2021-05-22 17:42] LABS: TROPONIN-I < 0.010 ng/mL (0.00-0.033)
[2021-05-22 18:05] LABS: BAND 9 % (0-10); LYMPHOCYTE 2 % (20.0-51.0); NEUTROPHILS 89 % (42.0-75.2); PLATELET ESTIMATE NORMAL (NORMAL)
[2021-05-22 19:07] LABS: ARTERIAL BLD GAS O2 SATURATION 97.9 % (92-100); ARTERIAL BLD GAS TCO2 CT 22.1; ARTERIAL BLOOD GAS BASE EXCESS -2.1 (-2-2); ARTERIAL BLOOD GAS HCO3 21.1 meq/L (22-26); ARTERIAL BLOOD GAS PCO2 31.2 mmHg (35-45); ARTERIAL BLOOD GAS PO2 103.3 mmHg (80-100); ARTERIAL BLOOD GAS pH 7.45 (7.35-7.45)
--- NOTE | 2021-05-22 20:45 | NUR ---
PATIENT ADMITTED TO ICU ROOM 5, CONNECTED TO MONITORS PATIENT IS CURRENTLY INTUBATED AND RECEIVING FENTANYL AT 100 MCG/HR PATIENT IS ABLE TO OPEN HIS EYES AND FOLLOW COMMANDS, PUPILS ARE PERRL, HOSPITALIST LOUISE JOHNSON AT BEDSIDE AND ORDERED PROPOFOL FOR SEDATION
[2021-05-23] VITALS (814 sets, daily range): BP systolic 99–118; BP diastolic 57–75; PULSE 78–80; TEMP 97.3–100.8; O2SAT 94–100
[2021-05-23] MEDS ORDERED: GLUCOTROL 5M5 MG/TAB PO (02:16)
[2021-05-23 05:43] LABS: BASO % 0.2 % (0.0-2.0); GRAN # 21.7 K/mm3 (1.4-6.5); GRAN % 95.2 % (42.2-75.2); LYMPH # 0.4 K/mm3 (1.2-3.4); LYMPH % 1.6 % (20.0-51.0); MEAN CELL VOLUME 95 fl (80.0-100.0); MEAN CORPUSCULAR HEMOGLOBIN 32 pg (27.0-31.0); MEAN CORPUSCULAR HGB CONC 33 g/dl (33.0-37.0); MEAN PLATELET VOLUME 9.9 fl (7.4-10.4); MONO # 0.5 K/mm3 (0.1-0.6); MONO % 2.4 % (1.7-9.3); PLATELET COUNT 249 K/mm3 (130-400); RED BLOOD COUNT 3.16 M/mm3 (4.20-5.60); REDCELL DISTRIBUTION WIDTH-CV 14.2 % (11.5-14.5)
[2021-05-23 05:46] LABS: HEMATOCRIT 30.1 % (42.0-52.0)
[2021-05-23 05:59] LABS: CALCIUM 8.8 mg/dL (8.4-10.2); CREATININE, serum 3.68 mg/dL (0.72-1.25); POTASSIUM 4.7 mmol/L (3.5-4.5)
[2021-05-23 06:08] LABS: ARTERIAL BLD GAS O2 SATURATION 99.2 % (92-100); ARTERIAL BLD GAS TCO2 CT 20.2; ARTERIAL BLOOD GAS BASE EXCESS -2.9 (-2-2); ARTERIAL BLOOD GAS HCO3 19.4 meq/L (22-26); ARTERIAL BLOOD GAS PCO2 26.3 mmHg (35-45); ARTERIAL BLOOD GAS pH 7.49 (7.35-7.45)
[2021-05-23 06:09] LABS: ARTERIAL BLOOD GAS PO2 164.5 mmHg (80-100)
--- NOTE | 2021-05-23 06:45 | NUR ---
PATIENT INTUBATED LESS THAN 24 HOURS AGO, SEDATION VACATION NOT PREFORMED AT THIS TIME, EARLIER TITRATION DOWN ON PROPOFOL RESULTED IN PATIENT ABLE TO OPEN EYES TO VERBAL STIMULATION AND NOD HEAD WHEN ASKED IF HE WAS IN PAIN OR UNCOMFORTABLE
--- NOTE | 2021-05-23 07:33 | NUR ---
RECEIVED REPORT FROM MAC TURK. PATIENT WAS ADMITTED LAST NIGHT. PATIENT IS CURRENTLY INTUBATED AND SEDATED. PATIENT IS FOLLOWING COMMANDS AND PASSING ALL NEUROLOGICAL CHECKS. SEE GTT TITRATION FLOWSHEET. MCNALLY CATHETER IN PLACE AND PATENT. VSS
--- NOTE | 2021-05-23 09:27 | NUR ---
Initial visit attempt; Patient resting with at his side. Straddle Truck Driver left a "Prayer Card" so that they will know Straddle Truck Driver is available whenever patient awakens.
--- NOTE | 2021-05-23 11:15 | NUR ---
Clinical Radiologist met with patient's , Kera (ph#[phone]) who is at bedside to complete initial intake. Patient is currently intubated. Patient lives in [place] with his Kera and sees Dr. Diez for primary care. Patient obtains medications from both [facility] and [facility] with no difficulties. Kera reports that patient was hospitalized in November and discharged home with [facility]. Patient was discharged from services and was set up with [facility] and Kera states they still were coming into [facility] to exercise. Patient has a cane and walker at home, but did not need them for ambulation. Kera advised patient was independent with ADLS and uses a shower chair to assist with bathing. Kera advised patient has Advance Directives which designate her as primary DPOA-HC agent and then lists their children. Kera reports she will bring in a copy to place on patient's chart. Kera is patient's legal next of kin. SW will follow for discharge needs.
[2021-05-23 11:28] LABS: MAGNESIUM 1.6 mg/dL (1.6-2.6); PHOSPHOROUS 4.3 mg/dL (2.3-4.7)
--- NOTE | 2021-05-23 17:00 | NUR ---
PATIENT HAS NOT BEEN INTUBATED FOR A FULL 24 HOURS YET. NO SEDATION VACATION TODAY.
[2021-05-23 17:50] LABS: COLLECTION METHOD CLEAN CATCH
[2021-05-23 18:00] LABS: BUDDING YEAST Present (NOT PRESENT); PH 5 (5-8); SQUAMOUS EPITHELIAL 0-2 /hpf (0-10); URINE APPEARANCE Cloudy (CLEAR/HAZY); URINE BACTERIA Rare (NONE SEEN); URINE BILIRUBIN Negative (NEGATIVE); URINE BLOOD 3+ (NEGATIVE); URINE COLOR Yellow (YELLOW); URINE GLUCOSE Negative (NEGATIVE); URINE KETONE Negative (NEGATIVE); URINE LEUKOCYTE ESTERASE Trace (NEGATIVE); URINE NITRATE Negative (NEGATIVE); URINE PROTEIN(semi-quant) 1+ (NEGATIVE); URINE RBC >50 /hpf (0-2); URINE UROBILINOGEN Negative (NEGATIVE); URINE WBC 20-50 /hpf (0-2)
[2021-05-24] VITALS (633 sets, daily range): BP systolic 96–136; BP diastolic 54–89; PULSE 79–80; TEMP 98.5–99.5; O2SAT 72–100
--- NOTE | 2021-05-24 06:03 | NUR ---
PATIENT BEGAN ON SEDATION VACATION AT 0416, DECREASING PROPOFOL FROM 30MCG/KG/MIN TO 25 AND THEN AT 0525 TO 20 AND FINALLY AT 0543 TO 15MCG.KG.MIN ALONG WITH THIS FENTANYL WAS DECREASED FROM 100MCG/HR TO 75MCG/HR TO 50MCG/HR AND FINALLY TO 25MCG/HR AT THE SAME RESPECTIVE TIMES, PATIENT IS CURRENTLY ABLE TO OPEN EYES AND FOLLOW COMMANDS, EXPLAINED PROCESS TO PATIENT AND HE NODDED HIS HEAD IN UNDERSTANDING.
[2021-05-24 06:09] LABS: BASO # 0.1 K/mm3 (0.0-0.2); BASO % 0.7 % (0.0-2.0); EOS # 0.1 K/mm3 (0.0-0.7); EOS % 0.7 % (0-4.0); GRAN # 7.1 K/mm3 (1.4-6.5); GRAN % 83.4 % (42.2-75.2); LYMPH # 0.4 K/mm3 (1.2-3.4); LYMPH % 5.1 % (20.0-51.0); MEAN CELL VOLUME 96 fl (80.0-100.0); MEAN CORPUSCULAR HGB CONC 33 g/dl (33.0-37.0); MONO # 0.8 K/mm3 (0.1-0.6); MONO % 9.6 % (1.7-9.3); PLATELET COUNT 205 K/mm3 (130-400); RED BLOOD COUNT 2.89 M/mm3 (4.20-5.60); REDCELL DISTRIBUTION WIDTH-CV 14.6 % (11.5-14.5)
[2021-05-24 06:22] LABS: CALCIUM 8.1 mg/dL (8.4-10.2); CREATININE, serum 3.54 mg/dL (0.72-1.25); HEMATOCRIT 27.7 % (42.0-52.0); HEMOGLOBIN 9.1 g/dl (13.5-18.0); MEAN CORPUSCULAR HEMOGLOBIN 31 pg (27.0-31.0); POTASSIUM 3.9 mmol/L (3.5-4.5)
--- NOTE | 2021-05-24 10:00 | NUR ---
Pt extubated to 4LNC - pt tolerated extubation well. Pt neurologically intact, voice is hoarse Oral suction device provided, pt is coughing up small amounts of dark brown sputum - oral care provided Pt's at bedside
--- NOTE | 2021-05-24 10:02 | NUR ---
PT EXTUBATED TO 4L OM. PT IS STABLE AND DOING WELL.
[2021-05-24] MEDS ORDERED: TYLENOL 325MG325 MG PO (18:52)
[2021-05-24] MEDS ORDERED: MEXITIL200 MG (18:53)
[2021-05-25] VITALS (235 sets, daily range): BP systolic 109–137; BP diastolic 54–67; PULSE 68–82; TEMP 97.7–98.7; O2SAT 77–99
--- NOTE | 2021-05-25 04:25 | NUR ---
RT UNAVAILABLE. RT IN ED
[2021-05-25 05:55] LABS: BASO # 0.1 K/mm3 (0.0-0.2); BASO % 0.7 % (0.0-2.0); EOS # 0.2 K/mm3 (0.0-0.7); EOS % 2.8 % (0-4.0); GRAN # 6.7 K/mm3 (1.4-6.5); GRAN % 82.8 % (42.2-75.2); LYMPH # 0.5 K/mm3 (1.2-3.4); LYMPH % 5.9 % (20.0-51.0); MEAN CELL VOLUME 99 fl (80.0-100.0); MEAN CORPUSCULAR HGB CONC 31 g/dl (33.0-37.0); MONO # 0.6 K/mm3 (0.1-0.6); MONO % 7.4 % (1.7-9.3); PLATELET COUNT 212 K/mm3 (130-400); RED BLOOD COUNT 2.86 M/mm3 (4.20-5.60); REDCELL DISTRIBUTION WIDTH-CV 14.2 % (11.5-14.5)
[2021-05-25 05:57] LABS: CALCIUM 8.5 mg/dL (8.4-10.2); CREATININE, serum 3.09 mg/dL (0.72-1.25); POTASSIUM 3.9 mmol/L (3.5-4.5)
[2021-05-25 06:04] LABS: HEMATOCRIT 28.3 % (42.0-52.0); HEMOGLOBIN 8.8 g/dl (13.5-18.0); MEAN CORPUSCULAR HEMOGLOBIN 31 pg (27.0-31.0)
--- NOTE | 2021-05-25 09:58 | NUR ---
PATIENT WAS TRANSFERED TO SURGICAL FLOOR VIA WHEELCHAIR. RN. NJ ASSUMED CARE AT BEDSIDE.
--- NOTE | 2021-05-25 09:58 | NUR ---
PATIENT TRANSFERED TO ROOM 346 WHERE MAC NJ ASSUMED CARE. PATIENT LEFT ICU UNIT AT 0958 VIA WHEELCHAIR.
--- NOTE | 2021-05-25 10:58 | NUR ---
Pt transferred to room 346. Pt. and his oriented to his new room. Breakfast ordered. Pt. hooked up to his IV zosyn to his left hand. Needs addressed. Plan for walker to be brought in his room. Pt. and his also requesting miralax for the patient. Plan to look into his medications to see if he can get miralax.
--- NOTE | 2021-05-25 11:09 | NUR ---
Surveyor Chain Helper collaborated with Hospitalist to order PT/OT. Patient to transfer to the surgical floor today.
--- NOTE | 2021-05-25 15:32 | NUR ---
LOUISE Leonard notified pt. was requesting miralax today. Pt. also on Q6 blood sugar checks, this RN requesting if pt. can be [facility]. LOUISE Leonard reports pt. can get miralax and blood sugar checks can be changed to [facility].
--- NOTE | 2021-05-25 16:49 | NUR ---
Pt.'s family expressing concerns why he is not taking his home med mexitil right now. Dr. Jimenez notified. Dr. Jimenez would like to hold the medication for now and review his case again during rounding tomorrow. Pt. denies further needs, call light and belongings in reach.
[2021-05-25 19:03] LABS: HEMOGLOBIN 9.2 g/dl (13.5-18.0)
--- NOTE | 2021-05-25 19:30 | NUR ---
Pt. sitting up in bed. Pt. is A&OX3, assessment complete. INT's x3 all patent. Pt. denies pain or other needs, call light within reach.
[2021-05-26 04:12] VITALS: BP 135/67; PULSE 80; TEMP 97.7
[2021-05-26 07:35] LABS: BASO % 0.6 % (0.0-2.0); EOS # 0.2 K/mm3 (0.0-0.7); EOS % 2.7 % (0-4.0); GRAN # 5.7 K/mm3 (1.4-6.5); GRAN % 80.7 % (42.2-75.2); LYMPH # 0.6 K/mm3 (1.2-3.4); LYMPH % 7.7 % (20.0-51.0); MEAN CELL VOLUME 96 fl (80.0-100.0); MEAN CORPUSCULAR HGB CONC 33 g/dl (33.0-37.0); MEAN PLATELET VOLUME 10.3 fl (7.4-10.4); MONO # 0.6 K/mm3 (0.1-0.6); PLATELET COUNT 257 K/mm3 (130-400); RED BLOOD COUNT 2.93 M/mm3 (4.20-5.60); REDCELL DISTRIBUTION WIDTH-CV 14.2 % (11.5-14.5)
[2021-05-26 07:47] LABS: CALCIUM 9.4 mg/dL (8.4-10.2); CREATININE, serum 2.84 mg/dL (0.72-1.25); POTASSIUM 3.6 mmol/L (3.5-4.5)
[2021-05-26 07:49] LABS: HEMOGLOBIN 9.1 g/dl (13.5-18.0); MEAN CORPUSCULAR HEMOGLOBIN 31 pg (27.0-31.0)
[2021-05-26 09:12] VITALS: BP 131/68; PULSE 83; TEMP 97.7
--- NOTE | 2021-05-26 09:49 | NUR ---
PT ASSESSED. NO COMPLAINTS OF PAIN OR DYSPNEA. NO SIGNS OR SYMPTOMS OF DISTRESS. CALL LIGHT WITHIN REACH
[2021-05-26 11:51] VITALS: BP 121/58; PULSE 79; TEMP 97.3
--- NOTE | 2021-05-26 14:10 | NUR ---
hot blast worker spoke with patient about discharge plan. Patient reports that he would like to be established with [facility]. reports that they are passport members and agrees with this plan.
--- NOTE | 2021-05-26 14:13 | NUR ---
Military Communications Specialist faxed a referral to [facility]. SW contacted Usha at [facility] and left a message.
[2021-05-26 17:55] VITALS: BP 117/55; PULSE 81; TEMP 98
[2021-05-26 19:25] VITALS: BP 108/48; PULSE 80; TEMP 98.3
--- NOTE | 2021-05-26 19:45 | NUR ---
PT IN CHAIR AT BEDSIDE, ASSISTED TO BATHROOM WITH GAIT BELT AND WALKER. GAIT SLOW AND STEADY. HAS IV ZOSYN INFUSING TO LEFT HAND, NO REDNESS OR SWELLING NOTED. BACK TO CHAIR AFTER VOIDING.
--- NOTE | 2021-05-26 21:00 | NUR ---
PT IN BED. IV ANTIBIOTIC INFUSING TO LEFT HAND WITHOUT PROBLEM. TAKES HS MED. DENIES PAIN. SL TO RT HAND AND RFA, FLUSH FINE. MINIMAL SHORTNESS OF BREATH WITH ACTIVITY. REPORTS LOOSE STOOLS.
[2021-05-26 23:40] VITALS: BP 135/66; PULSE 82; TEMP 97.9
[2021-05-27 04:01] VITALS: BP 139/67; PULSE 79; TEMP 98.5
--- NOTE | 2021-05-27 04:30 | NUR ---
PT AWAKE, IV ANTIBIOTIC COMPLETE, FLUSHED LEFT HAND SITE WITHOUT PROBLEM. DENIES PAIN AT THIS TIME.
[2021-05-27 06:24] LABS: BASO # 0.1 K/mm3 (0.0-0.2); BASO % 0.7 % (0.0-2.0); EOS # 0.2 K/mm3 (0.0-0.7); EOS % 2.3 % (0-4.0); GRAN # 5.9 K/mm3 (1.4-6.5); LYMPH # 0.7 K/mm3 (1.2-3.4); LYMPH % 8.9 % (20.0-51.0); MEAN CELL VOLUME 92 fl (80.0-100.0); MEAN CORPUSCULAR HGB CONC 33 g/dl (33.0-37.0); MEAN PLATELET VOLUME 10.1 fl (7.4-10.4); MONO # 0.6 K/mm3 (0.1-0.6); MONO % 7.7 % (1.7-9.3); PLATELET COUNT 255 K/mm3 (130-400); RED BLOOD COUNT 2.94 M/mm3 (4.20-5.60); REDCELL DISTRIBUTION WIDTH-CV 14.2 % (11.5-14.5)
[2021-05-27 06:46] LABS: HEMATOCRIT 27.1 % (42.0-52.0); HEMOGLOBIN 8.9 g/dl (13.5-18.0); MEAN CORPUSCULAR HEMOGLOBIN 30 pg (27.0-31.0)
[2021-05-27 07:16] VITALS: BP 129/68; PULSE 80; TEMP 98.1
[2021-05-27 08:45] LABS: CALCIUM 9.2 mg/dL (8.4-10.2); CREATININE, serum 2.53 mg/dL (0.72-1.25); POTASSIUM 3.8 mmol/L (3.5-4.5)
[2021-05-27] MEDS ORDERED: OMNICEF 300MG300 MG PO (10:41)
[2021-05-27] MEDS ORDERED: DOXYCYCLINE 10100 MG PO (10:42)
[2021-05-27] MEDS ORDERED: ELIQUIS 2.5 PO (10:51)
[2021-05-27] MEDS ORDERED: PLAVIX 75MG TAB75 MG PO (10:57)
[2021-05-27] MEDS ORDERED: ALDACTONE 25MG25 M1 PO (10:59)
[2021-05-27] MEDS ORDERED: PRINIVIL5 MG PO (10:59)
[2021-05-27 11:20] VITALS: BP 118/52; PULSE 81; TEMP 98.1
--- NOTE | 2021-05-27 11:31 | NUR ---
Patient alert and oriented, answers questions appropriately. See assessment. Lungs decreased in bases, clear in upper lobes. Heart tones strong and even, pulses palpable. No c/o at this time.
--- NOTE | 2021-05-27 13:18 | NUR ---
Discharge instructions reviewed with patient and spouse, verbalized understanding. Discharged via wheelchair to auto/home with spouse at 1300.
--- NOTE | 2021-05-27 14:54 | NUR ---
Faxed DC order to [facility] home [email or web address].
== END 2021-05-27 13:00 | disposition home health service (06) | DRG 871 ==
LOC: COL.ER 16:47 → ICU 18:27 → SURG 05-25 10:42
PROVIDERS: Family Medicine; Internal Medicine Nephrology; Internal Medicine Pulmonary Disease; Physician Assistant; Student in an Organized Health Care Education/Training Program; ADMIT Internal Medicine
PROC: 5A1945Z Respiratory Ventilation, 24-96 Consecutive Hours (ICD-10-PCS; principal; 2021-05-22)
PROC: 0BH17EZ Insertion of Endotracheal Airway into Trachea, Via Natural or Artificial Opening (ICD-10-PCS; 2021-05-22)
DX: A41.9 Sepsis, unspecified organism (principal); J96.21 Acute and chronic respiratory failure with hypoxia; J15.0 Pneumonia due to Klebsiella pneumoniae; I13.0 Hypertensive heart and chronic kidney disease with heart failure and stage 1 through stage 4 chronic kidney disease, or unspecified chronic kidney disease; N17.9 Acute kidney failure, unspecified; I50.20 Unspecified systolic (congestive) heart failure; N39.0 Urinary tract infection, site not specified; Z66 Do not resuscitate; I48.0 Paroxysmal atrial fibrillation; Z95.0 Presence of cardiac pacemaker; I25.5 Ischemic cardiomyopathy; R65.20 Severe sepsis without septic shock; Z86.73 Personal history of transient ischemic attack (TIA), and cerebral infarction without residual deficits; E78.5 Hyperlipidemia, unspecified; M10.9 Gout, unspecified; E11.22 Type 2 diabetes mellitus with diabetic chronic kidney disease; N18.9 Chronic kidney disease, unspecified; H40.9 Unspecified glaucoma; I25.2 Old myocardial infarction; Z79.84 Long term (current) use of oral hypoglycemic drugs; I25.10 Atherosclerotic heart disease of native coronary artery without angina pectoris; Z79.82 Long term (current) use of aspirin; Z87.891 Personal history of nicotine dependence; R79.89 Other specified abnormal findings of blood chemistry; E87.5 Hyperkalemia; Z20.822 Contact with and (suspected) exposure to COVID-19
CPT/HCPCS: 99223-AI; 99232-AI; 99233-AI; 99239; J0330; J1940; J2250; J2405; J2543; J2704; J3010; J7030; J7060

== ENCOUNTER 2021-06-11 10:32 | Emergency (ER) | payer MEDICARE, BC ==
[~2021-06-11] VITALS: Ht 172.7 cm; Wt 73.6 kg
[~2021-06-11 10:32] MED LIST changes: +DOXYCYCLINE 10100 MG PO; +ELIQUIS 2.5 PO; +GLUCOTROL 5M5 MG/TAB PO; +MEXITIL200 MG; +OMNICEF 300MG300 MG PO; +PLAVIX 75MG TAB75 MG PO; +PRINIVIL5 MG PO; +TYLENOL 325MG325 MG PO
[2021-06-11 10:46] VITALS: TEMP 97.1
[2021-06-11 11:16] VITALS: BP 105/70; PULSE 77
== END 2021-06-11 11:16 | disposition home or self-care (01) ==
LOC: COL.ER 10:32
DX: I95.89 Other hypotension (principal); I25.2 Old myocardial infarction; I12.9 Hypertensive chronic kidney disease with stage 1 through stage 4 chronic kidney disease, or unspecified chronic kidney disease; N18.9 Chronic kidney disease, unspecified; I25.10 Atherosclerotic heart disease of native coronary artery without angina pectoris; E11.22 Type 2 diabetes mellitus with diabetic chronic kidney disease; I48.0 Paroxysmal atrial fibrillation; E78.5 Hyperlipidemia, unspecified; M10.9 Gout, unspecified; Z86.73 Personal history of transient ischemic attack (TIA), and cerebral infarction without residual deficits; Z79.899 Other long term (current) drug therapy; Z79.84 Long term (current) use of oral hypoglycemic drugs; Z79.01 Long term (current) use of anticoagulants; Z79.02 Long term (current) use of antithrombotics/antiplatelets

== ENCOUNTER 2021-08-12 15:22 | Emergency (ER) | payer MEDICARE, BC ==
[~2021-08-12] VITALS: Ht 172.7 cm; Wt 74.1 kg
[2021-08-12 16:11] LABS: BASO % 0.8 % (0.0-2.0); EOS # 0.1 K/mm3 (0.0-0.7); EOS % 2.5 % (0.0-4.0); GRAN # 3.7 K/mm3 (1.4-6.5); GRAN % 72.4 % (42.2-75.2); HEMOGLOBIN 10.5 g/dl (13.5-18.0); LYMPH # 0.8 K/mm3 (1.2-3.4); LYMPH % 15.1 % (20.0-51.0); MEAN CELL VOLUME 94 fl (80.0-100.0); MEAN CORPUSCULAR HEMOGLOBIN 32 pg (27-31); MEAN CORPUSCULAR HGB CONC 34 g/dl (33.0-37.0); MEAN PLATELET VOLUME 9.7 fl (7.4-10.4); MONO # 0.5 K/mm3 (0.1-0.6); MONO % 8.8 % (1.7-9.3); PLATELET COUNT 197 K/mm3 (130-400); RED BLOOD COUNT 3.33 M/mm3 (4.20-5.60); REDCELL DISTRIBUTION WIDTH-CV 16.2 % (11.5-14.5)
[2021-08-12 16:12] LABS: HEMATOCRIT 31.2 % (42.0-52.0)
[2021-08-12 17:06] LABS: ALBUMIN 3.9 gm/dL (3.4-4.8); BILIRUBIN,TOTAL 0.6 mg/dL (0.2-1.2); CALCIUM 9.4 mg/dL (8.4-10.2); CREATININE, serum 3.07 mg/dL (0.72-1.25); POTASSIUM 4.7 mmol/L (3.5-4.5); TOTAL PROTEIN 6.9 gm/dL (6.2-8.1)
[2021-08-12 20:30] VITALS: BP 128/64; PULSE 77; TEMP 97.9
== END 2021-08-12 20:32 | disposition home or self-care (01) ==
LOC: COL.ER 15:22
PROVIDERS: Physician Assistant; Student in an Organized Health Care Education/Training Program
DX: K59.00 Constipation, unspecified (principal); R10.30 Lower abdominal pain, unspecified; I48.0 Paroxysmal atrial fibrillation; I25.2 Old myocardial infarction; I50.22 Chronic systolic (congestive) heart failure; I13.0 Hypertensive heart and chronic kidney disease with heart failure and stage 1 through stage 4 chronic kidney disease, or unspecified chronic kidney disease; E11.22 Type 2 diabetes mellitus with diabetic chronic kidney disease; N18.9 Chronic kidney disease, unspecified; I25.10 Atherosclerotic heart disease of native coronary artery without angina pectoris; E78.5 Hyperlipidemia, unspecified; M10.9 Gout, unspecified; Z79.82 Long term (current) use of aspirin; Z79.899 Other long term (current) drug therapy; Z79.01 Long term (current) use of anticoagulants; Z79.02 Long term (current) use of antithrombotics/antiplatelets; Z79.84 Long term (current) use of oral hypoglycemic drugs
CPT/HCPCS: J7030

== ENCOUNTER 2021-08-18 08:16 | Emergency (ER) | payer MEDICARE, BC ==
[~2021-08-18] VITALS: Ht 172.7 cm; Wt 72.3 kg
[2021-08-18 08:24] VITALS: TEMP 97.8
[2021-08-18 08:40] LABS: COLLECTION METHOD CLEAN CATCH
[2021-08-18 09:08] LABS: PH 5 (5-8); SQUAMOUS EPITHELIAL None Seen /hpf (0-10); URINE APPEARANCE Cloudy (CLEAR/HAZY); URINE BACTERIA None Seen /hpf (NONE SEEN); URINE BILIRUBIN Negative (NEGATIVE); URINE BLOOD 2+ (NEGATIVE); URINE COLOR Red (YELLOW); URINE GLUCOSE Negative (NEGATIVE); URINE KETONE Trace (NEGATIVE); URINE LEUKOCYTE ESTERASE 1+ (NEGATIVE); URINE NITRATE Negative (NEGATIVE); URINE PROTEIN(semi-quant) 2+ (NEGATIVE); URINE RBC >50 /hpf (0-2); URINE UROBILINOGEN Negative (NEGATIVE)
[2021-08-18 09:14] LABS: BASO % 0.6 % (0.0-2.0); EOS # 0.2 K/mm3 (0.0-0.7); EOS % 2.4 % (0.0-4.0); GRAN # 5.6 K/mm3 (1.4-6.5); GRAN % 79.1 % (42.2-75.2); HEMOGLOBIN 10.3 g/dl (13.5-18.0); LYMPH # 0.6 K/mm3 (1.2-3.4); LYMPH % 8.7 % (20.0-51.0); MEAN CELL VOLUME 93 fl (80.0-100.0); MEAN CORPUSCULAR HEMOGLOBIN 31 pg (27-31); MEAN CORPUSCULAR HGB CONC 33 g/dl (33.0-37.0); MEAN PLATELET VOLUME 9.4 fl (7.4-10.4); MONO # 0.6 K/mm3 (0.1-0.6); MONO % 8.5 % (1.7-9.3); PLATELET COUNT 190 K/mm3 (130-400); RED BLOOD COUNT 3.33 M/mm3 (4.20-5.60); REDCELL DISTRIBUTION WIDTH-CV 15.8 % (11.5-14.5)
[2021-08-18 09:16] LABS: HEMATOCRIT 31.1 % (42.0-52.0)
[2021-08-18 09:20] LABS: INR 1.5 (0.8-3.0); PROTHROMBIN TIME 16.4 SECONDS (9.7-12.8)
[2021-08-18 09:23] LABS: PARTIAL THROMBOPLASTIN TIME 31.3 SECONDS (26.0-37.0)
[2021-08-18 09:27] LABS: ALBUMIN 3.4 gm/dL (3.4-4.8); BILIRUBIN,TOTAL 0.6 mg/dL (0.2-1.2); CREATININE, serum 3.08 mg/dL (0.72-1.25); POTASSIUM 4.6 mmol/L (3.5-4.5); TOTAL PROTEIN 6.5 gm/dL (6.2-8.1)
[2021-08-18 13:27] VITALS: BP 124/72; PULSE 82
== END 2021-08-18 13:18 | disposition home or self-care (01) ==
LOC: COL.ER 08:16
PROVIDERS: Student in an Organized Health Care Education/Training Program
DX: R31.9 Hematuria, unspecified (principal); Z87.448 Personal history of other diseases of urinary system; Z95.5 Presence of coronary angioplasty implant and graft; Z79.01 Long term (current) use of anticoagulants